=== PATIENT | female | born 1960 | race Caucasian/White ===

== ENCOUNTER → 2017-04-03 | Outpatient (CLI) | payer BC | END | disposition home or self-care (01) | LOC: C.PAPS 14:22 | PROVIDERS: ATTEND Obstetrics & Gynecology | DX: Z01.419 Encounter for gynecological examination (general) (routine) without abnormal findings (principal) ==

== ENCOUNTER → 2017-04-03 | Outpatient (CLI) | payer BC | END | disposition home or self-care (01) | LOC: C.LABSPEC 13:18 | PROVIDERS: ATTEND Obstetrics & Gynecology | DX: B37.3 Candidiasis of vulva and vagina (principal) ==

== ENCOUNTER → 2017-06-01 | Outpatient (CLI) | payer BC ==
--- NOTE | 2017-06-01 15:43 | DIAGNOSTIC IMAGING REPORT ---
MRI OF THE RIGHT KNEE CLINICAL HISTORY: Right knee injury. Posterior knee pain. COMPARISON STUDY: Radiographs of the right knee dated 12/15/2014. TECHNIQUE: MRI of the right knee was performed utilizing proton density, T1, and T2-weighted sequences in the axial, sagittal, coronal planes. IV contrast was not administered for this examination. Note that interpretation is suboptimal without current plain film correlate. FINDINGS: Menisci: Medial meniscus appears somewhat diminutive. There is increased signal within the posterior horn of the medial meniscus. This does not clearly extend to the articular surface. The lateral meniscus is intact. Ligaments: The anterior and posterior cruciate ligaments are intact. The medial and lateral collateral ligaments are within normal limits. Extensor mechanism: There is thickening of the popliteal tendon, which may represent tendinopathy/partial is tearing. There is also tendinopathy seen involving the quadriceps tendon. Mild surrounding edema is noted. Hoffa's fat pad is normal in appearance. Articular cartilage and bone: There is greater than 50% fissuring of the articular cartilage at the patellar apex and along the medial facet. Mild reactive marrow edema is noted. The articular cartilage of the lateral facet is maintained. There is a shallow trochlea with mild patellar tilt. There is less than 50% thinning of the articular cartilage along the weightbearing surface in the medial compartment. There is associated reactive marrow edema and a developing osteochondral defect is suspected. Particular cartilage in the lateral compartment is preserved. There is no MRI evidence of fracture. Joint effusion: None Soft tissues: The musculature surrounding the knee joint is normal in bulk and signal intensity. IMPRESSION: 1. There is thickening of the popliteal tendon with foci of increased signal. This likely recommend tendinopathy. Partial thickness tearing is not excluded. 2. There is tendinopathy of the quadriceps tendon with mild partial thickness tearing. There is mild edema within the posterior fat. 3. There is a shallow trochlea with patellar tilt and cartilage loss at the patellar apex as above. 4. Suspect a developing osteochondral defect along the weightbearing surface of the medial compartment. There is no evidence of instability. 5. The cruciate ligaments and the collateral ligament are maintained. 6. The medial meniscus appears slightly diminutive. There is increased signal within the posterior horn of the medial meniscus which does not clearly extend to the articular surface. This could represent mucoid degeneration or possibly a small intrasubstance tear. Electronically signed by: Sp King M.D. 06/01/2017 3:42 PM Dictated Date/Time: 06/01/2017 3:34 PM
== END | disposition home or self-care (01) ==
LOC: C.MRIBC 14:48
PROVIDERS: ATTEND Internal Medicine
DX: S89.91XA Unspecified injury of right lower leg, initial encounter (principal); X58.XXXA Exposure to other specified factors, initial encounter; M25.861 Other specified joint disorders, right knee

== ENCOUNTER → 2017-06-26 | Outpatient (CLI) | payer BC, OTHER | END | disposition home or self-care (01) | LOC: C.RDSM 18:14 | PROVIDERS: ATTEND Physical Medicine & Rehabilitation Sports Medicine | DX: M25.561 Pain in right knee (principal) ==

== ENCOUNTER → 2017-10-17 | Outpatient (CLI) | payer OTHER | END | disposition home or self-care (01) | LOC: C.LABSPEC 17:57 | PROVIDERS: ATTEND Podiatrist Primary Podiatric Medicine | DX: B35.1 Tinea unguium (principal) ==